=== PATIENT | female | born 1930 | race Caucasian/White ===

== ENCOUNTER 2017-02-06 06:27 | Day surgery (SDC) | payer OTHER ==
[~2017-02-06] VITALS: Ht 152.4 cm; Wt 60.0 kg
[~2017-02-06 06:27] MED LIST: APRESOLINE25 MG PO; BENGAY GREASEL113 GM TP; CENTRUM ADULTS1 EACH PO; COUMADIN,JANTOVE2 MG PO; COUMADIN2 MG PO; COUMADIN4 MG PO; CYMBALTA30 MG PO; DIGITEK125 MC2 PO; DIGITEK125 MCG PO; DONEPEZIL HCL5 MG PO; ELIQUIS2.5 MG PO; HYDROCHLOROTHIA25 MG PO; K-DUR20 MEQ PO; LANOXIN125 MCG PO; LOPRESSOR50 MG PO; LOTENSIN HCT1 TABLE2 PO; METOPROLOL TAR100 MG PO; METOPROLOL TART25 MG PO; METOPROLOL TART75 MG PO; NEXIUM40 MG PO; POTASSIUM CHLO20 ME2 PO; SIMVASTATIN20 MG PO; TYLENOL REGULA325 MG PO; ZESTRIL40 MG PO; ZOCOR20 MG PO
[2017-02-06 07:05] VITALS: BP 185/88
[2017-02-06 07:12] LABS: INTER. NORMALIZED RATIO 1.1; PROTHROMBIN TIME 12.1 SEC (10.2-12.9)
[2017-02-06 07:15] LABS: PTT 35.3 SEC (25-37)
[2017-02-06 08:24] LABS: METH RESISTANT S AUREUS PCR NEGATIVE (NEGATIVE)
[2017-02-06 08:27] LABS: PROBE CHECK PASS; SPECIMEN PROCESSING CONTROL PASS
[2017-02-06] MEDS ORDERED: DILAUDID2 MG PO (13:31)
[2017-02-06 15:03] VITALS: BP 150/76
[2017-02-06 15:59] VITALS: BP 132/70
[2017-02-06 17:39] VITALS: BP 122/70
[2017-02-06 18:33] VITALS: BP 132/86
== END 2017-02-06 18:40 | disposition home or self-care (01) ==
LOC: SDC 06:27 → NUC 07:30 → SDC 07:30
PROVIDERS: Surgery
DX: D05.11 Intraductal carcinoma in situ of right breast (principal); Z17.1 Estrogen receptor negative status [ER-]; I48.91 Unspecified atrial fibrillation; K21.0 Gastro-esophageal reflux disease with esophagitis; I10 Essential (primary) hypertension; Z80.3 Family history of malignant neoplasm of breast; Z79.01 Long term (current) use of anticoagulants; Z88.0 Allergy status to penicillin; Z88.2 Allergy status to sulfonamides; G30.9 Alzheimer's disease, unspecified; F02.80 Dementia in other diseases classified elsewhere, unspecified severity, without behavioral disturbance, psychotic disturbance, mood disturbance, and anxiety
CPT/HCPCS: 78195; 78999; 80162; 85610; 85730; 87641; 88305; 88307; A9541; J1170; J2405; J3010; S0020

== ENCOUNTER 2017-03-11 09:20 | Day surgery (SDC) | payer OTHER ==
[~2017-03-11] VITALS: Ht 152.4 cm; Wt 60.7 kg
[~2017-03-11 09:20] MED LIST changes: +DILAUDID2 MG PO
[2017-03-11 10:04] LABS: PROTHROMBIN TIME 11.2 SEC (10.2-12.9)
[2017-03-11 10:07] LABS: PTT 32.5 SEC (25-37)
[2017-03-11 10:14] VITALS: BP 159/72
[2017-03-11 15:51] VITALS: BP 149/89
[2017-03-11 19:46] VITALS: BP 128/89
[2017-03-11 23:58] VITALS: BP 134/63
[2017-03-12 04:07] VITALS: BP 134/68
[2017-03-12 07:10] LABS: HEMATOCRIT 32.9 % (36.0-46.0); MCHC 31.6 G/DL (30.0-36.0); MCV 91.6 FL (83-99); MEAN PLAT.VOLUME 11.5 uM^3 (9.5-12.4); RBC DIS.WIDTH-CV 13.7 % (11.8-14.6); RBC DIS.WIDTH-SD 46.6 % (39-53); RED BLOOD COUNT 3.59 M/uL (3.80-5.20); WHITE BLOOD COUNT 6.7 K/uL (4.1-10.2)
[2017-03-12 07:30] VITALS: BP 148/72
[2017-03-12 08:47] LABS: PLATELET COUNT 144 K/uL (156-360)
[2017-03-12] MEDS ORDERED: NORCO 5/3251 TABLET PO (10:46)
[2017-03-12 11:12] VITALS: BP 159/70
== END 2017-03-12 12:55 | disposition home or self-care (01) ==
LOC: SDC → 2EASTP 14:27 → 2SOUTH 14:27 → SDC 15:01 → ENRESERV 15:01 → 2EASTP 15:48
PROVIDERS: Surgery
PROC: 0HTT0ZZ Resection of Right Breast, Open Approach (ICD-10-PCS; principal; 2017-03-11)
DX: C50.411 Malignant neoplasm of upper-outer quadrant of right female breast (principal); Z17.1 Estrogen receptor negative status [ER-]; Z80.3 Family history of malignant neoplasm of breast; I10 Essential (primary) hypertension; I48.2 Chronic atrial fibrillation; Z79.01 Long term (current) use of anticoagulants
CPT/HCPCS: 85027; 85610; 85730; 88307; G0378; J0131; J0330; J1956; J2405; J3010; J3480; S0020

== ENCOUNTER 2017-06-26 19:01 | Inpatient (IN) | payer OTHER ==
[~2017-06-26] VITALS: Ht 152.4 cm; Wt 58.1 kg
[~2017-06-26 19:01] MED LIST changes: -CENTRUM ADULTS1 EACH PO; +CENTRUM MULTIG80 MCG PO; +LOPRESSOR25 MG PO; -METOPROLOL TART75 MG PO; +NEXIUM 24HR20 M2 PO; +NORCO 5/3251 TABLET PO
[2017-06-26 19:39] LABS: HEMATOCRIT 40.6 % (36.0-46.0); HEMOGLOBIN 13.2 G/DL (11.9-15.5); MCH 29.3 PG (29.0-34.0); MCHC 32.5 G/DL (30.0-36.0); PLATELET COUNT 182 K/uL (156-360); RBC DIS.WIDTH-CV 13.2 % (11.8-14.6); RBC DIS.WIDTH-SD 43.7 % (39-53); RED BLOOD COUNT 4.51 M/uL (3.80-5.20); WHITE BLOOD COUNT 7.9 K/uL (4.1-10.2)
[2017-06-26 19:50] LABS: ALBUMIN 4.4 g/dL (3.2-4.8)
[2017-06-26 19:51] LABS: CHLORIDE 102 mEq/L (99-109); POTASSIUM 3.3 mEq/L (3.7-5.4); SODIUM 140 mEq/L (136-147)
[2017-06-26 19:53] LABS: GLUCOSE 137 mg/dL (70-99); TOTAL PROTEIN 7.6 g/dL (6.4-8.3)
[2017-06-26 19:55] LABS: TOTAL BILIRUBIN 1.1 mg/dL (0.0-1.0)
[2017-06-26 19:56] LABS: ALKALINE PHOSPHATASE 120 IU/L (3-129)
[2017-06-26 19:57] LABS: CREATININE 0.8 mg/dL (0.6-1.3); GFR ESTIMATE (CALCULATED) > 59 mL/min/
[2017-06-26 19:58] LABS: AST (GOT) 31 IU/L (2-34); UREA NITROGEN (BUN) 22 mg/dL (9-23)
[2017-06-26 20:00] LABS: ALT (GPT) 19 IU/L (3-49); LIPASE 26 U/L (1.0-51.0)
[2017-06-26 21:39] LABS: APPEARANCE SL.HAZY ((CLEAR)); BILIRUBIN NEGATIVE; BLOOD NEGATIVE; COLOR YELLOW ((YELLOW)); GLUCOSE (STRIP) NEGATIVE; KETONES 5; LEUKOCYTES NEGATIVE; NITRITE NEGATIVE; PROTEIN (STRIP) 30; SPECIFIC GRAVITY 1.018 (1.000-1.030); UROBILINOGEN 0.2 MG/DL (0.2-1.0)
[2017-06-26 21:43] LABS: BACTERIA RARE /HPF; EPITHELIAL CELLS 1+ /HPF; MUCUS TRACE /LPF; RED BLOOD CELLS 0-5 /HPF (0-5); UCUL ADDED? NO; WHITE BLOOD CELLS 0-5 /HPF (0-5)
[2017-06-27] VITALS (9 sets, daily range): BP systolic 110–181; BP diastolic 61–77
[2017-06-27] MEDS ORDERED: SIMVASTATIN20 MG PO (00:32)
[2017-06-27] MEDS ORDERED: THERA TEARS30 ML BOTH EYES (00:33)
[2017-06-27 01:49] LABS: DIGOXIN 0.4 ng/mL (0.8-2.0)
[2017-06-27 06:37] LABS: HEMATOCRIT 35.4 % (36.0-46.0); HEMOGLOBIN 11.3 G/DL (11.9-15.5); MCH 28.8 PG (29.0-34.0); MCHC 31.9 G/DL (30.0-36.0); MCV 90.3 FL (83-99); PLATELET COUNT 170 K/uL (156-360); RBC DIS.WIDTH-CV 13.5 % (11.8-14.6); RBC DIS.WIDTH-SD 44.1 % (39-53); RED BLOOD COUNT 3.92 M/uL (3.80-5.20); WHITE BLOOD COUNT 7.9 K/uL (4.1-10.2)
[2017-06-27 07:14] LABS: ALBUMIN 3.7 G/DL (3.2-4.8); ALKALINE PHOSPHATASE 85 IU/L (3-129); ALT (GPT) 14 IU/L (3-49); AST (GOT) 25 IU/L (2-34); CHLORIDE 105 MEQ/L (99-109); CREATININE 0.6 MG/DL (0.6-1.3); GFR ESTIMATE (CALCULATED) > 59 mL/min/; GLUCOSE 88 mg/dL (70-99); POTASSIUM 3.1 MEQ/L (3.7-5.4); SODIUM 143 MEQ/L (136-147); TOTAL BILIRUBIN 0.9 MG/DL (0.0-1.0); TOTAL PROTEIN 5.8 G/DL (6.4-8.3); UREA NITROGEN (BUN) 15 mg/dL (9-23)
[2017-06-27 11:14] LABS: TROP-I INTERPRETATION NEGATIVE; TROPONIN-I 0.02 ng/mL (0.0-0.30)
[2017-06-28] VITALS (7 sets, daily range): BP systolic 127–214; BP diastolic 66–110
[2017-06-28 06:45] LABS: HEMATOCRIT 43.5 % (36.0-46.0); MCH 28.6 PG (29.0-34.0); MCHC 31.7 G/DL (30.0-36.0); MCV 90.2 FL (83-99); PLATELET COUNT 210 K/uL (156-360); RBC DIS.WIDTH-CV 13.6 % (11.8-14.6); RBC DIS.WIDTH-SD 44.9 % (39-53); WHITE BLOOD COUNT 9.4 K/uL (4.1-10.2)
[2017-06-28 06:48] LABS: HEMOGLOBIN 13.8 G/DL (11.9-15.5); RED BLOOD COUNT 4.82 M/uL (3.80-5.20)
[2017-06-28 06:59] LABS: CHLORIDE 104 MEQ/L (99-109); CREATININE 0.7 MG/DL (0.6-1.3); GFR ESTIMATE (CALCULATED) > 59 mL/min/; MAGNESIUM 1.4 mg/dl (1.3-2.7); SODIUM 140 MEQ/L (136-147); UREA NITROGEN (BUN) 14 mg/dL (9-23)
[2017-06-28 07:01] LABS: GLUCOSE 133 mg/dL (70-99); POTASSIUM 3.9 MEQ/L (3.7-5.4)
[2017-06-29] VITALS: BP 116/62
[2017-06-29 04:00] VITALS: BP 184/89
[2017-06-29 06:57] LABS: BASOPHIL (%) 0.4 % (0-1); EOSINOPHIL (%) 3.9 % (0-5); EOSINOPHIL COUNT 0.3 K/uL (0-0.3); HEMATOCRIT 37.1 % (36.0-46.0); IMMATURE GRANULOCYTE (%) 0.3 % (0.0-0.7); LYMPHOCYTE (%) 27.6 % (15-42); LYMPHOCYTE COUNT 2.1 K/uL (1.0-2.8); MCH 28.4 PG (29.0-34.0); MCHC 31.8 G/DL (30.0-36.0); MCV 89.2 FL (83-99); MONOCYTE COUNT 0.9 K/uL (0-0.8); NEUTROPHIL (%) 55.8 % (45-76); NEUTROPHIL COUNT 4.3 K/uL (1.8-6.4); PLATELET COUNT 174 K/uL (156-360); RBC DIS.WIDTH-CV 13.5 % (11.8-14.6); RBC DIS.WIDTH-SD 44.2 % (39-53); RED BLOOD COUNT 4.16 M/uL (3.80-5.20); WHITE BLOOD COUNT 7.7 K/uL (4.1-10.2)
[2017-06-29 07:01] LABS: CHLORIDE 103 MEQ/L (99-109); CREATININE 0.8 MG/DL (0.6-1.3); GFR ESTIMATE (CALCULATED) > 59 mL/min/; GLUCOSE 106 mg/dL (70-99); POTASSIUM 3.5 MEQ/L (3.7-5.4); SODIUM 139 MEQ/L (136-147); UREA NITROGEN (BUN) 18 mg/dL (9-23)
[2017-06-29 07:07] LABS: HEMOGLOBIN 11.8 G/DL (11.9-15.5)
[2017-06-29 08:27] VITALS: BP 163/83
[2017-06-29] MEDS ORDERED: APRESOLINE50 MG PO (11:28)
[2017-06-29 11:59] VITALS: BP 99/60
== END 2017-06-29 14:00 | disposition home or self-care (01) | DRG 392 ==
LOC: EME 19:01 → EDOF 06-27 00:46 → 5SOUTH 06-27 00:46 → ENRESERV 06-27 00:55 → 5SOUTH 06-27 01:56
PROVIDERS: Emergency Medicine; Internal Medicine; Physician Assistant Medical; Student in an Organized Health Care Education/Training Program
DX: A08.4 Viral intestinal infection, unspecified (principal); I10 Essential (primary) hypertension; E78.5 Hyperlipidemia, unspecified; K59.00 Constipation, unspecified; E87.6 Hypokalemia; I48.2 Chronic atrial fibrillation; R26.89 Other abnormalities of gait and mobility; R12 Heartburn; K21.9 Gastro-esophageal reflux disease without esophagitis; Z88.5 Allergy status to narcotic agent; Z88.6 Allergy status to analgesic agent; Z88.8 Allergy status to other drugs, medicaments and biological substances; Z91.14 Patient's other noncompliance with medication regimen; Z90.12 Acquired absence of left breast and nipple; Z87.891 Personal history of nicotine dependence; Z85.3 Personal history of malignant neoplasm of breast
CPT/HCPCS: 70450; 74177; 80048; 80053; 80162; 81003; 83690; 83735; 84484; 85025; 85027; 87502; 93005; 99281; 99285; J0360; J3480; J7030

== ENCOUNTER 2017-11-16 09:17 | Observation (INO) | payer OTHER ==
[~2017-11-16] VITALS: Ht 152.4 cm; Wt 59.9 kg
[~2017-11-16 09:17] MED LIST changes: +APRESOLINE50 MG PO; +THERA TEARS30 ML BOTH EYES
[2017-11-16 09:43] LABS: BASOPHIL (%) 0.4 % (0-1); EOSINOPHIL COUNT 0.1 K/uL (0-0.3); HEMATOCRIT 38.2 % (36.0-46.0); HEMOGLOBIN 12.4 G/DL (11.9-15.5); IMMATURE GRANULOCYTE (%) 1.3 % (0.0-0.7); LYMPHOCYTE (%) 22.4 % (15-42); LYMPHOCYTE COUNT 1.6 K/uL (1.0-2.8); MCH 28.5 PG (29.0-34.0); MCHC 32.5 G/DL (30.0-36.0); MCV 87.8 FL (83-99); MONOCYTE (%) 10.3 % (3-12); MONOCYTE COUNT 0.7 K/uL (0-0.8); NEUTROPHIL (%) 63.6 % (45-76); NEUTROPHIL COUNT 4.5 K/uL (1.8-6.4); PLATELET COUNT 154 K/uL (156-360); RBC DIS.WIDTH-CV 13.9 % (11.8-14.6); RBC DIS.WIDTH-SD 44.7 % (39-53); RED BLOOD COUNT 4.35 M/uL (3.80-5.20)
[2017-11-16 09:55] LABS: AMYLASE 48 IU/L (1-118); CHLORIDE 102 mEq/L (99-109); POTASSIUM 3.5 mEq/L (3.7-5.4); SODIUM 142 mEq/L (136-147)
[2017-11-16 09:56] LABS: GLUCOSE 108 mg/dL (70-99)
[2017-11-16 10:00] LABS: CREATININE 0.8 mg/dL (0.6-1.3); GFR ESTIMATE (CALCULATED) > 59 mL/min/; SERUM ETHYL ALCOHOL < 10 mg/dL
[2017-11-16 10:01] LABS: UREA NITROGEN (BUN) 16 mg/dL (9-23)
[2017-11-16 10:03] LABS: LIPASE 33 U/L (1.0-51.0)
[2017-11-16 10:40] LABS: APPEARANCE CLEAR ((CLEAR)); BILIRUBIN NEGATIVE; BLOOD NEGATIVE; COLOR STRAW ((YELLOW)); GLUCOSE (STRIP) NEGATIVE; KETONES NEGATIVE; LEUKOCYTES NEGATIVE; NITRITE NEGATIVE; PROTEIN (STRIP) NEGATIVE; UCUL ADDED? NO; UROBILINOGEN 0.2 MG/DL (0.2-1.0)
[2017-11-16 11:19] LABS: AMPHETAMINE NEGATIVE (500 ng/mL); BARBITURATES NEGATIVE (200 ng/mL); BENZODIAZEPINES NEGATIVE (150 ng/mL); BUPRENORPHINE NEGATIVE (10 ng/mL); COCAINE NEGATIVE (150 ng/mL); METHADONE NEGATIVE (200 ng/mL); METHAMPHETAMINE NEGATIVE (500 ng/mL); OPIATES (MORPHINE) NEGATIVE (100 ng/mL); OXYCODONE NEGATIVE (100 ng/mL); PHENCYCLIDINE NEGATIVE (25 ng/mL); PROPOXYPHENE NEGATIVE (300 ng/mL); THC CANNABINOIDS NEGATIVE (50 ng/mL); TRICYCLIC ANTIDEPRESSANTS NEGATIVE (300 ng/mL)
[2017-11-16] MEDS ORDERED: PRED FORTE100 DROP/5 LEFT EYE (14:39)
[2017-11-16 18:36] VITALS: BP 179/84
[2017-11-16 20:16] VITALS: BP 174/92
[2017-11-16 23:27] VITALS: BP 128/63
[2017-11-17 04:51] VITALS: BP 178/86
[2017-11-17 08:18] VITALS: BP 118/63
[2017-11-17 16:09] VITALS: BP 161/83
[2017-11-17 19:26] VITALS: BP 184/85
[2017-11-18 00:14] VITALS: BP 172/90
[2017-11-18 08:00] VITALS: BP 141/71
[2017-11-18] MEDS ORDERED: PRAVACHOL40 MG PO (12:50)
[2017-11-18] MEDS ORDERED: MIRALAX17 GM PO (12:50)
[2017-11-18] MEDS ORDERED: COLACE100 MG PO (12:51)
== END 2017-11-18 11:43 ==
LOC: TRA 09:17 → EDOF 14:15 → 3EAST 14:15 → ENRESERV 14:17 → 3EAST 17:35
PROVIDERS: Emergency Medicine
DX: S32.592A Other specified fracture of left pubis, initial encounter for closed fracture (principal); E87.6 Hypokalemia; I48.2 Chronic atrial fibrillation; I10 Essential (primary) hypertension; Z79.01 Long term (current) use of anticoagulants; Z85.3 Personal history of malignant neoplasm of breast; Z90.11 Acquired absence of right breast and nipple; R26.89 Other abnormalities of gait and mobility; K21.9 Gastro-esophageal reflux disease without esophagitis; W01.0XXA Fall on same level from slipping, tripping and stumbling without subsequent striking against object, initial encounter; Z91.81 History of falling; Y93.89 Activity, other specified; Y92.008 Other place in unspecified non-institutional (private) residence as the place of occurrence of the external cause; Z82.49 Family history of ischemic heart disease and other diseases of the circulatory system; Z82.3 Family history of stroke; Z80.3 Family history of malignant neoplasm of breast; Z88.6 Allergy status to analgesic agent; Z88.5 Allergy status to narcotic agent; Z88.1 Allergy status to other antibiotic agents; Z88.8 Allergy status to other drugs, medicaments and biological substances
CPT/HCPCS: 70450; 71045; 72192; 73502; 80048; 81003; 82150; 83690; 85025; 86850; 86900; 86901; 97530 GP; 99281; 99285; G0378; G0480; G8987 GO CL; G8988 GO CJ; J7030

== ENCOUNTER 2017-11-18 11:47 | Inpatient (IN) | payer OTHER ==
[~2017-11-18] VITALS: Ht 152.4 cm; Wt 62.1 kg
[~2017-11-18 11:47] MED LIST changes: +PRED FORTE100 DROP/5 LEFT EYE
[2017-11-18 12:00] VITALS: BP 177/81
[2017-11-18] MEDS ORDERED: MIRALAX17 GM PO (12:50)
[2017-11-18] MEDS ORDERED: PRAVACHOL40 MG PO (12:50)
[2017-11-18] MEDS ORDERED: COLACE100 MG PO (12:51)
[2017-11-18 16:42] VITALS: BP 140/98
[2017-11-19 00:27] VITALS: BP 160/82
[2017-11-19 04:28] VITALS: BP 150/66
[2017-11-19 05:32] LABS: HEMATOCRIT 34.1 % (36.0-46.0); MCH 28.4 PG (29.0-34.0); MCHC 32.3 G/DL (30.0-36.0); MCV 87.9 FL (83-99); PLATELET COUNT 128 K/uL (156-360); RBC DIS.WIDTH-CV 14.3 % (11.8-14.6); RBC DIS.WIDTH-SD 45.9 % (39-53); RED BLOOD COUNT 3.88 M/uL (3.80-5.20); WHITE BLOOD COUNT 7.3 K/uL (4.1-10.2)
[2017-11-19 06:17] LABS: ALBUMIN 3.9 G/DL (3.2-4.8); ALKALINE PHOSPHATASE 83 IU/L (3-129); ALT (GPT) 12 IU/L (3-49); AST (GOT) 22 IU/L (2-34); CHLORIDE 103 MEQ/L (99-109); CREATININE 0.6 MG/DL (0.6-1.3); GFR ESTIMATE (CALCULATED) > 59 mL/min/; GLUCOSE 106 mg/dL (70-99); POTASSIUM 3.4 MEQ/L (3.7-5.4); SODIUM 142 MEQ/L (136-147); TOTAL PROTEIN 6.3 G/DL (6.4-8.3); UREA NITROGEN (BUN) 14 mg/dL (9-23)
[2017-11-19 15:27] VITALS: BP 143/61
[2017-11-20 05:54] VITALS: BP 160/90
[2017-11-20 06:29] LABS: CHLORIDE 102 MEQ/L (99-109); CREATININE 0.7 MG/DL (0.6-1.3); GFR ESTIMATE (CALCULATED) > 59 mL/min/; GLUCOSE 112 mg/dL (70-99); SODIUM 135 MEQ/L (136-147); UREA NITROGEN (BUN) 27 mg/dL (9-23)
[2017-11-20 15:16] VITALS: BP 119/71
[2017-11-21 05:58] VITALS: BP 150/79
[2017-11-21 06:00] LABS: CHLORIDE 100 MEQ/L (99-109); CREATININE 0.7 MG/DL (0.6-1.3); GFR ESTIMATE (CALCULATED) > 59 mL/min/; GLUCOSE 107 mg/dL (70-99); POTASSIUM 3.8 MEQ/L (3.7-5.4); SODIUM 134 MEQ/L (136-147); UREA NITROGEN (BUN) 25 mg/dL (9-23)
[2017-11-21 15:32] VITALS: BP 158/78
[2017-11-22 03:34] VITALS: BP 138/66
[2017-11-22 16:00] VITALS: BP 150/65
[2017-11-23 06:01] VITALS: BP 158/80
[2017-11-23 15:44] VITALS: BP 122/78
[2017-11-24 05:01] VITALS: BP 130/60
[2017-11-24 15:24] VITALS: BP 124/62
[2017-11-25 04:53] LABS: BASOPHIL (%) 0.3 % (0-1); EOSINOPHIL (%) 2.4 % (0-5); EOSINOPHIL COUNT 0.2 K/uL (0-0.3); HEMATOCRIT 30.4 % (36.0-46.0); HEMOGLOBIN 10.2 G/DL (11.9-15.5); IMMATURE GRANULOCYTE (%) 0.1 % (0.0-0.7); LYMPHOCYTE (%) 19.4 % (15-42); LYMPHOCYTE COUNT 1.3 K/uL (1.0-2.8); MCH 28.9 PG (29.0-34.0); MCHC 33.6 G/DL (30.0-36.0); MCV 86.1 FL (83-99); MONOCYTE (%) 13.1 % (3-12); MONOCYTE COUNT 0.9 K/uL (0-0.8); NEUTROPHIL (%) 64.7 % (45-76); NEUTROPHIL COUNT 4.4 K/uL (1.8-6.4); RBC DIS.WIDTH-CV 13.9 % (11.8-14.6); RBC DIS.WIDTH-SD 43.5 % (39-53); RED BLOOD COUNT 3.53 M/uL (3.80-5.20); WHITE BLOOD COUNT 6.7 K/uL (4.1-10.2)
[2017-11-25 05:07] LABS: CHLORIDE 97 mEq/L (99-109); POTASSIUM 4.3 mEq/L (3.7-5.4); SODIUM 133 mEq/L (136-147)
[2017-11-25 05:08] LABS: PLATELET COUNT 170 K/uL (156-360)
[2017-11-25 05:09] LABS: GLUCOSE 106 mg/dL (70-99)
[2017-11-25 05:13] LABS: CREATININE 0.7 mg/dL (0.6-1.3); GFR ESTIMATE (CALCULATED) > 59 mL/min/
[2017-11-25 05:14] LABS: UREA NITROGEN (BUN) 27 mg/dL (9-23)
[2017-11-25 05:16] VITALS: BP 143/60
[2017-11-25 16:00] VITALS: BP 137/73
[2017-11-25 17:06] VITALS: BP 135/65
[2017-11-26 05:54] VITALS: BP 154/88
[2017-11-26 16:00] VITALS: BP 159/65
[2017-11-27 03:53] VITALS: BP 130/80
[2017-11-27 15:54] VITALS: BP 110/64
[2017-11-28 04:34] VITALS: BP 105/68
[2017-11-28 07:28] LABS: ALBUMIN 3.9 G/DL (3.2-4.8); ALKALINE PHOSPHATASE 123 IU/L (3-129); ALT (GPT) 16 IU/L (3-49); AST (GOT) 26 IU/L (2-34); CHLORIDE 91 MEQ/L (99-109); CREATININE 0.5 MG/DL (0.6-1.3); GFR ESTIMATE (CALCULATED) > 59 mL/min/; GLUCOSE 105 mg/dL (70-99); POTASSIUM 3.8 MEQ/L (3.7-5.4); SODIUM 129 MEQ/L (136-147); TOTAL BILIRUBIN 0.8 MG/DL (0.0-1.0); TOTAL PROTEIN 6.2 G/DL (6.4-8.3); UREA NITROGEN (BUN) 21 mg/dL (9-23)
[2017-11-28 07:33] LABS: HEMATOCRIT 30.7 % (36.0-46.0); HEMOGLOBIN 10.1 G/DL (11.9-15.5); MCH 28.1 PG (29.0-34.0); MCHC 32.9 G/DL (30.0-36.0); MCV 85.3 FL (83-99); PLATELET COUNT 208 K/uL (156-360); RBC DIS.WIDTH-SD 43.3 % (39-53); WHITE BLOOD COUNT 6.6 K/uL (4.1-10.2)
[2017-11-28 07:58] LABS: INTER. NORMALIZED RATIO 1.1
[2017-11-28 08:01] LABS: PTT 30.6 SEC (25-37)
[2017-11-28 13:31] VITALS: BP 112/52
[2017-11-28 15:31] VITALS: BP 118/62
[2017-11-29 05:20] VITALS: BP 152/78
[2017-11-29 07:22] LABS: CHLORIDE 92 MEQ/L (99-109); CREATININE 0.5 MG/DL (0.6-1.3); GFR ESTIMATE (CALCULATED) > 59 mL/min/; GLUCOSE 98 mg/dL (70-99); POTASSIUM 3.8 MEQ/L (3.7-5.4); SODIUM 130 MEQ/L (136-147); UREA NITROGEN (BUN) 19 mg/dL (9-23)
[2017-11-29 12:53] VITALS: BP 162/82
[2017-11-29] MEDS ORDERED: APRESOLINE50 MG PO (13:28)
[2017-11-29] MEDS ORDERED: METOPROLOL SUCC50 MG PO (13:29)
[2017-11-29] MEDS ORDERED: VALSARTAN160 MG PO (13:29)
[2017-11-29] MEDS ORDERED: SODIUM CHLORIDE1 G1 PO (13:30)
[2017-11-29] MEDS ORDERED: CALCIUM CARB1 TABLET PO (13:30)
[2017-11-29] MEDS ORDERED: CENTRUM MULTIG80 MCG PO (13:31)
[2017-11-29] MEDS ORDERED: Salonpas 4% Patch TD (13:31)
[2017-11-29] MEDS ORDERED: HYDROCODON-ACE1 EAC7 PO (13:33)
[2017-11-29 14:40] VITALS: BP 128/68
== END 2017-11-29 15:12 | DRG 560 ==
LOC: 3WEST 11:47 → ENPENDDIS 11-29 → 3WEST 11-29 15:12
PROVIDERS: Family Medicine Sports Medicine; Physical Medicine & Rehabilitation Pain Medicine; Radiology Diagnostic Radiology
PROC: F07M0ZZ Range of Motion and Joint Mobility Treatment of Musculoskeletal System - Whole Body (ICD-10-PCS; principal; 2017-11-18)
DX: S32.592D Other specified fracture of left pubis, subsequent encounter for fracture with routine healing (principal); E87.1 Hypo-osmolality and hyponatremia; R26.2 Difficulty in walking, not elsewhere classified; R91.8 Other nonspecific abnormal finding of lung field; Z53.09 Procedure and treatment not carried out because of other contraindication; I11.9 Hypertensive heart disease without heart failure; M16.0 Bilateral primary osteoarthritis of hip; I48.2 Chronic atrial fibrillation; K21.9 Gastro-esophageal reflux disease without esophagitis; E87.6 Hypokalemia; M85.80 Other specified disorders of bone density and structure, unspecified site; K57.30 Diverticulosis of large intestine without perforation or abscess without bleeding; E78.5 Hyperlipidemia, unspecified; F03.90 Unspecified dementia, unspecified severity, without behavioral disturbance, psychotic disturbance, mood disturbance, and anxiety; G47.00 Insomnia, unspecified; K59.00 Constipation, unspecified; Z85.3 Personal history of malignant neoplasm of breast; Z90.11 Acquired absence of right breast and nipple; Z90.711 Acquired absence of uterus with remaining cervical stump; Z79.01 Long term (current) use of anticoagulants
CPT/HCPCS: 71250; 74176; 80048; 80053; 85025; 85027; 85610; 85730; 97110 GO; 97530 GP; J0360; J3010

== ENCOUNTER 2018-01-12 02:29 | Observation (INO) | payer OTHER ==
[~2018-01-12] VITALS: Ht 152.4 cm; Wt 65.7 kg
[~2018-01-12 02:29] MED LIST changes: +CALCIUM CARB1 TABLET PO; +COLACE100 MG PO; +HYDROCODON-ACE1 EAC7 PO; +METOPROLOL SUCC50 MG PO; +MIRALAX17 GM PO; +PRAVACHOL40 MG PO; +SODIUM CHLORIDE1 G1 PO; +Salonpas 4% Patch TD; +VALSARTAN160 MG PO
[2018-01-12 05:44] LABS: HEMATOCRIT 34.8 % (36.0-46.0); HEMOGLOBIN 11.3 G/DL (11.9-15.5); MCH 29.4 PG (29.0-34.0); MCHC 32.5 G/DL (30.0-36.0); MCV 90.6 FL (83-99); PLATELET COUNT 161 K/uL (156-360); RBC DIS.WIDTH-CV 14.4 % (11.8-14.6); RBC DIS.WIDTH-SD 47.9 % (39-53); RED BLOOD COUNT 3.84 M/uL (3.80-5.20); WHITE BLOOD COUNT 5.8 K/uL (4.1-10.2)
[2018-01-12 05:52] LABS: INTER. NORMALIZED RATIO 1.1
[2018-01-12 06:02] LABS: ALBUMIN 4.1 g/dL (3.2-4.8); CHLORIDE 102 mEq/L (99-109); POTASSIUM 4.1 mEq/L (3.7-5.4); SODIUM 141 mEq/L (136-147)
[2018-01-12 06:03] LABS: MAGNESIUM 1.7 mg/dL (1.3-2.7)
[2018-01-12 06:04] LABS: GLUCOSE 127 mg/dL (70-99)
[2018-01-12 06:05] LABS: TOTAL PROTEIN 6.9 g/dL (6.4-8.3)
[2018-01-12 06:06] LABS: TOTAL BILIRUBIN 0.6 mg/dL (0.0-1.0)
[2018-01-12 06:08] LABS: ALKALINE PHOSPHATASE 160 IU/L (3-129); CREATININE 0.7 mg/dL (0.6-1.3); GFR ESTIMATE (CALCULATED) > 59 mL/min/
[2018-01-12 06:09] LABS: UREA NITROGEN (BUN) 18 mg/dL (9-23)
[2018-01-12 06:10] LABS: AST (GOT) 38 IU/L (2-34)
[2018-01-12 06:11] LABS: ALT (GPT) 20 IU/L (3-49)
[2018-01-12 06:17] LABS: TROP-I INTERPRETATION NEGATIVE; TROPONIN-I 0.01 ng/mL (0.0-0.30)
[2018-01-12] MEDS ORDERED: ZESTRIL40 MG PO (08:42)
[2018-01-12] MEDS ORDERED: VITAMIN D31000 UNI1 PO (08:43)
[2018-01-12] MEDS ORDERED: CENTRUM SILV1 TABLET PO (08:44)
[2018-01-12] MEDS ORDERED: SALONPAS PATCH1 EAC1 TD (08:44)
[2018-01-12] MEDS ORDERED: APRESOLINE50 MG PO (08:45)
[2018-01-12] MEDS ORDERED: LOPRESSOR25 MG PO (08:45)
[2018-01-12 09:28] VITALS: BP 189/86
[2018-01-12 11:29] VITALS: BP 186/76
[2018-01-12 15:30] VITALS: BP 179/81
[2018-01-12 20:05] VITALS: BP 215/98
[2018-01-12 23:33] VITALS: BP 196/93
[2018-01-13 03:41] VITALS: BP 181/81
[2018-01-13 07:49] VITALS: BP 145/86
[2018-01-13 11:17] VITALS: BP 149/75
[2018-01-13] MEDS ORDERED: ROPINIROLE HC0.25 MG PO (12:52)
== END 2018-01-13 15:34 | disposition home or self-care (01) ==
LOC: EME 02:29 → EDOF 08:08 → ENRESERV 08:19 → 4SOUTH 08:53 → ENPENDDIS 01-13 13:27 → 4SOUTH 01-13 15:34
PROVIDERS: Emergency Medicine
DX: I10 Essential (primary) hypertension (principal); R25.1 Tremor, unspecified; I48.2 Chronic atrial fibrillation; K21.9 Gastro-esophageal reflux disease without esophagitis; E78.5 Hyperlipidemia, unspecified; R91.8 Other nonspecific abnormal finding of lung field; E87.1 Hypo-osmolality and hyponatremia; R26.89 Other abnormalities of gait and mobility; F03.90 Unspecified dementia, unspecified severity, without behavioral disturbance, psychotic disturbance, mood disturbance, and anxiety; Z85.3 Personal history of malignant neoplasm of breast; Z79.01 Long term (current) use of anticoagulants; Z90.11 Acquired absence of right breast and nipple; Z90.710 Acquired absence of both cervix and uterus; Z82.49 Family history of ischemic heart disease and other diseases of the circulatory system; Z80.3 Family history of malignant neoplasm of breast; Z82.3 Family history of stroke; Z88.5 Allergy status to narcotic agent; Z88.6 Allergy status to analgesic agent; Z88.2 Allergy status to sulfonamides; Z88.1 Allergy status to other antibiotic agents; Z88.8 Allergy status to other drugs, medicaments and biological substances
CPT/HCPCS: 70450; 71045; 80053; 81003; 83735; 84484; 85027; 85610; 85730; 93005; 99281; 99285; G0378; J2060; J7030; J7040